=== PATIENT | female | born 1980 | race Caucasian/White ===

== ENCOUNTER → 2018-11-29 | Outpatient (REF) ==
--- NOTE | 2018-11-29 09:47 | Diagnostic Imaging Report ---
Patient History: PRE-EMPLOYMENT. Asymptomatic. Technique: Two views of the chest Comparison: None FINDINGS: The lung volumes are normal. No focal consolidation is seen. No large pleural effusion or pneumothorax is seen. The cardiomediastinal silhouette is normal in size and contour. No acute osseous abnormality is seen. IMPRESSION: No acute pulmonary abnormality seen. Dictated by: Dictated on workstation # [id number]
== END | disposition home or self-care (01) ==
LOC: OCC 09:09
PROVIDERS: ATTEND Nurse Practitioner Family
CPT/HCPCS: 71046